=== PATIENT | female | born 1970 | race Caucasian/White ===

== ENCOUNTER 2022-06-10 06:51 | Inpatient (IN) | payer MEDICAID ==
[2022-06-03 16:37] LABS: CLARITY,URINE SLIGHTLY CLOUDY (Clear); COLOR,URINE YELLOW (Yellow); GLUCOSE, URINE NEGATIVE (Neg); KETONES,URINE 15 mg/dl (Neg); LEUKOCYTE ESTERASE ,URINE NEGATIVE (Neg); NITRITES, URINE NEGATIVE (Neg); OCCULT BLOOD,URINE SMALL (Neg); PH,URINE 5.5 (4.8-8.0); PROTEIN,URINE NEGATIVE (Neg); UROBILINOGEN,URINE 0.2 E.U/dL (0.2-1.0)
[2022-06-03 16:39] LABS: UA COLLECTION TYPE CLN CATCH MIDSTREAM
[2022-06-03 16:51] LABS: ALBUMIN/GLOBULIN RATIO 1.1 (1.1-1.5); ALKALINE PHOSPHATASE 45 IU/L (46-116); BLOOD UREA NITROGEN 10 MG/DL (7-18); CALCIUM 8.5 MG/DL (8.5-10.1); CHLORIDE 107 MMOL/L (99-107); CREATININE 0.77 MG/DL (0.40-0.90); PRE OP ALT 13 U/L (30-65); PRE OP ANION GAP 7 (8-16); PRE OP AST 22 U/L (10-37); PRE OP BILIRUB, TOTAL 0.4 MG/DL (0.0-1.0); PRE OP GLUCOSE 87 MG/DL (70-104); PRE OP SODIUM 141 MMOL/L (135-145); TOTAL CARBON DIOXIDE 27.4 MMOL/L (24-32); TOTAL PROTEIN 7.5 G/DL (6.4-8.2); eGFR 79 ML/MIN
[2022-06-03 16:53] LABS: BACTERIA,URINE 1+ /HPF (Neg); MUCUS STRANDS MANY /LPF (Neg); SQUAMOUS EPITHELIAL CELL,UR MANY /LPF (FEW); WBC,URINE 0-4 /HPF (0-4)
[2022-06-03 17:00] LABS: BASOPHILS # (AUTO) 0.1 X10'3 (0-0.2); BASOPHILS % (AUTO) 0.7 % (0-1); EOSINOPHILS # (AUTO) 0.1 X10'3 (0-0.9); EOSINOPHILS % (AUTO) 1.5 % (0-6); LYMPHOCYTES # (AUTO) 2.9 X10'3 (1.1-4.8); MEAN CORPUSCULAR HGB CONC 33.7 g/dL (33.0-36.5); MONOCYTES # (AUTO) 0.7 X10'3 (0-0.9); MONOCYTES % (AUTO) 9.3 % (2-12); NEUTROPHILS # (AUTO) 3.9 X10'3 (1.8-7.7); NEUTROPHILS % (AUTO) 50.5 % (42-75); PRE OP HEMATOCRIT 43.1 % (35.0-45.0); PRE OP HEMOGLOBIN 14.5 g/dL (12.0-16.0); PRE OP PLATELET COUNT 200 X10'3 (140-440); RED BLOOD COUNT 4.68 X10'6 (4.20-5.60); RED CELL DISTRIBUTION WIDTH 13.8 % (11.5-14.5)
[~2022-06-10] VITALS: Ht 165.1 cm; Wt 72.6 kg
[2022-06-10] VITALS (25 sets, daily range): BP systolic 83–122; BP diastolic 47–86
[~2022-06-10 06:51] MED LIST: DULO-31 PO; ESCI5TAB PO; ESTR2TAB50 PO; HYDROcodone/acetaminophen 10/325mg tab PO PRN; HYDROmorphone 1 mg/ml syringe IV PRN; MELO-102 PO; XAL0.005OS OP; acetaminophen 325mg tablet PO ONE; acetaminophen 325mg tablet PO PRN; bisacodyl 10mg suppository rectal RC PRN; ceFAZolin inj. 2,000 MG in dextrose 5%-water 100 ML IV ONE; celeCOXIB 100mg capsule PO ONE; diphenhydrAMINE 25mg capsule PO PRN; famotidine 20mg tablet PO ONE; gabapentin 300mg capsule PO ONE; magnesium hydroxide 30ml (MOM) UD suspension PO PRN; metoclopramide 5 mg/ml inj IV ONE; naloxone 0.4 mg/ml inj IV PRN; ondansetron/PF 4mg/2ml inj IV PRN; ringers solution, lacted 1,000 ML IV SCH; tranexamic acid inj. 1,000 MG in 0.7% saline 100 ML PMX IV ONE; vancomycin 1,500 MG in NS 300ml IV soln IV ONE
[2022-06-10] MEDS: gabapentin 300mg capsule PO SCH ×3 (08:00→20:44)
[2022-06-10] MEDS ORDERED: ringers solution, lacted 1,000 ML IV SCH (08:00)
[2022-06-10] MEDS ORDERED: ondansetron/PF 4mg/2ml inj IV PRN (08:00)
[2022-06-10] MEDS ORDERED: hydrALAZINE 20mg/ml inj. IV PRN (08:00)
[2022-06-10] MEDS ORDERED: morphine 4 MG/ML inj SYRINge IV PRN (08:00)
[2022-06-10] MEDS ORDERED: labetalol 20mg/4ml (5mg/ml) syringe IV PRN (08:00)
[2022-06-10] MEDS ORDERED: morphine 2 MG/ML inj. syringe IV PRN (08:00)
[2022-06-10] MEDS ORDERED: fentaNYL/PF 50MCG/1 ML 2ML syringe IV PRN ×2 (08:00)
--- NOTE | 2022-06-10 08:00 | NUR ---
CALLED [facility] SARMIENTO RE: PT HAVING NO ORDERS ON CHART YET FOR SURGERY. DR HATCH PHYSICAL THERAPY PROFESSOR STATES THEY WILL FAX OVER ORDERS CARLTIO. MD LEWIS AWARE WERE WAITING ON ORDERS.
[2022-06-10] MEDS ORDERED: ketorolac trometh. 30mg/ml inj. ONE (09:02)
[2022-06-10] MEDS ORDERED: epiNEPHrine 1 mg/ml inj ONE (09:02)
[2022-06-10] MEDS ORDERED: vancomycin 1,000mg inj ONE ×2 (09:03→09:37)
[2022-06-10] MEDS ORDERED: cloNIDine hcl/PF 100mcg/ml inj ONE (09:03)
[2022-06-10] MEDS ORDERED: BUPIVAcaine/PF 5 mg/ml 10ml ONE (09:05)
[2022-06-10] MEDS ORDERED: ceFAZolin 1000mg inj ONE (09:37)
[2022-06-10] MEDS ORDERED: fentaNYL/PF 50MCG/1 ML 2ML syringe ONE (09:49)
[2022-06-10] MEDS ORDERED: midazolam 1 mg/ML 2ml injection ONE (10:10)
--- NOTE | 2022-06-10 10:30 | NUR ---
PT HEADED BACK TO OPERATING ROOM. MD AWARE PT HAS NO ORDERS FOR SURGERY ON CHART YET. OR CHARGE ALSO AWARE AND UNDERSTANDS ORDERS WERE UNAVAILABLE IN PAS UNIT. THEREFORE PT DID NOT GET PRE OP MEDICATIONS PER DR HATCH ORDERS. PT WILL HOWEVER GET VANCO AND ANCEF ORDERED FOR PRE OP.
--- NOTE | 2022-06-10 11:03 | NUR ---
Received from OR via ORTHO BED , accompanied by Anesthesiologist ISIDRO and report given by Anesthesiolgist.PATIENT WITH 20G PIV IN LEFT UE RUNNIGN LR AT 100. DENIES PAIN SENSATION LEVEL IS AT L1 CA THIS TIME. PATIENT WITH RICKY VAC TO RIGHT THIGH AREA. KNEE IMMOBILIZER PRESENT. PATIENT WITH + DP TO RIGHT FOOT. Addendum: 06/10/22 at 1202 by Panchito Tejeda RN, RN Amended: Links added.
[2022-06-10] MEDS: duloxetine 30mg CAPSULE.DR PO SCH (12:00)
[2022-06-10] MEDS: ESCITALOPRAM OXALATE 5 MG TABLET PO SCH ×2 (12:00→20:45)
[2022-06-10] MEDS ORDERED: tranexamic acid inj. 730 MG in normal saline 100ml IV soln 92.7 ML IV ONE ×2 (12:00→14:00)
--- NOTE | 2022-06-10 12:23 | NUR ---
CARE OF PATIENT AND REPORT HAS BEEN CALLED. ALL QUESTIONS ANSWERED TO ACCEPTING RN. PATIENT HAS MET ALL CRITERIA FOR TRANSFER TO [facility] ICU ORTHO FLOOR. VSS. DRESSINGS INTACT. BED LOW, CALL LIGHT PRESENT AND 2 RAILS UP. RN PRESENT TO ACCEPT. RN AWARE PATIENT HAS ARRIVED. Addendum: 06/10/22 at 1257 by Panchito Turcios - DARBY RN Amended: Links added.
--- NOTE | 2022-06-10 17:30 | NUR ---
I have reviewed and agree with all interventions, assessments performed, and documention by DARBY Yancey.
--- NOTE | 2022-06-10 18:12 | NUR ---
Problems reprioritized. Patient report given, questions answered & plan of care reviewed with DARBY Barnett.
--- NOTE | 2022-06-10 18:36 | NUR ---
Patient in room ORTHO 4010. I have received report from Naye DENNIS and had the opportunity to ask questions and assume patient care.
[2022-06-10] MEDS: potassium cl 20mEq in 1/2 NS 1,000 ML IV SCH ×2 (18:51→20:44)
[2022-06-10] MEDS: ceFAZolin/D5W- 1GM premix 50 ML IV SCH (19:01)
[2022-06-10] MEDS ORDERED: vancomycin/NS 1 GM ADD-VANTAGE 250 ML IV SCH (20:00)
[2022-06-10] MEDS ORDERED: latanoprost 0.005% 2.5ml ophthalmic drops EACHEYE SCH (21:00)
[2022-06-10] MEDS ORDERED: sennosides 8.6mg tablet PO SCH (21:00)
[2022-06-10] MEDS: HYDROmorphone inj. 0.5 MG/0.5 ML DISP.SYRIN IV PRN (23:04)
[2022-06-11] MEDS: ceFAZolin/D5W- 1GM premix 50 ML IV SCH (00:35)
[2022-06-11 02:00] VITALS: BP 85/54
[2022-06-11] MEDS: potassium cl 20mEq in 1/2 NS 1,000 ML IV SCH (04:00)
[2022-06-11] MEDS: HYDROmorphone inj. 0.5 MG/0.5 ML DISP.SYRIN IV PRN (05:39)
[2022-06-11 06:00] VITALS: BP 92/49
--- NOTE | 2022-06-11 06:20 | NUR ---
Patient in room ORTHO 4010. I have received report from Ericka and had the opportunity to ask questions and assume patient care.
[2022-06-11] MEDS ORDERED: oxyCODONE/APAP 10/325mg tablet PO PRN ×2 (06:25)
[2022-06-11 06:35] LABS: BASOPHILS % (AUTO) 0.3 % (0-1); EOSINOPHILS # (AUTO) 0.1 X10'3 (0-0.9); EOSINOPHILS % (AUTO) 0.7 % (0-6); HEMATOCRIT 32.9 % (35.0-45.0); HEMOGLOBIN 11.1 g/dl (12.0-16.0); LYMPHOCYTES # (AUTO) 1.6 X10'3 (1.1-4.8); LYMPHOCYTES % (AUTO) 20.1 % (21-51); MEAN CORPUSCULAR HEMOGLOBIN 31.3 PG (27.0-31.0); MEAN CORPUSCULAR HGB CONC 33.9 g/dL (33.0-36.5); MEAN CORPUSCULAR VOLUME 92.3 FL (78-98); MEAN PLATELET VOLUME 7.9 FL (7.4-10.4); MONOCYTES # (AUTO) 1.1 X10'3 (0-0.9); MONOCYTES % (AUTO) 13.9 % (2-12); NEUTROPHILS # (AUTO) 5.2 X10'3 (1.8-7.7); PLATELET COUNT 151 X10'3 (140-440); RED BLOOD COUNT 3.56 X10'6 (4.20-5.60); RED CELL DISTRIBUTION WIDTH 13.6 % (11.5-14.5)
--- NOTE | 2022-06-11 06:37 | NUR ---
Problems reprioritized. Patient report given, questions answered & plan of care reviewed with shea PASTOR.
[2022-06-11 06:52] LABS: ANION GAP 9 (8-16); CHLORIDE 109 MMOL/L (99-107); POTASSIUM 4.1 MMOL/L (3.5-5.1); SODIUM 141 MMOL/L (135-145); TOTAL CARBON DIOXIDE 23.5 MMOL/L (24-32)
[2022-06-11] MEDS ORDERED: ascorbic acid 500mg tablet PO SCH (08:00)
[2022-06-11] MEDS ORDERED: multivitamins, therapeutics tablet PO SCH (08:00)
[2022-06-11] MEDS ORDERED: aspirin 325mg tablet PO SCH (08:30)
[2022-06-11] MEDS: gabapentin 300mg capsule PO SCH (08:46)
[2022-06-11] MEDS: ESCITALOPRAM OXALATE 5 MG TABLET PO SCH (08:46)
[2022-06-11] MEDS: duloxetine 30mg CAPSULE.DR PO SCH (08:46)
--- NOTE | 2022-06-11 10:23 | NUR ---
Joint surgery consult: Pt s/p R hip surgery this admit per EMR. Pt seen by JOHN for written/verbal high protein diet ed w/ RD contact information provided. JOHN encouraged pt to contact dietitian's office if further questions/concerns. Addendum: 06/11/22 at [address] Amended: Links added.
--- NOTE | 2022-06-11 11:10 | NUR ---
Reviewed discharge instructions with patient. Pt verbalized understanding. Pt is alert, oriented and ready to go home. Pt dressed herself, gathered all of her belongings and was wheeled down stairs to be driven home by her son.
[2022-06-11] MEDS ORDERED: celeCOXIB 100mg capsule PO SCH (20:00)
[2022-06-12] MEDS ORDERED: estradiol 1mg tablet PO SCH (08:00)
== END 2022-06-11 11:10 | disposition home or self-care (01) | DRG 324 ==
LOC: PAS 06:51 → ORTHO 4S 12:52
PROVIDERS: ADMIT Orthopaedic Surgery; ATTEND Orthopaedic Surgery
PROC: 0SR906Z Replacement of Right Hip Joint with Oxidized Zirconium on Polyethylene Synthetic Substitute, Open Approach (ICD-10-PCS; principal; 2022-06-10 09:43)
DX: M16.11 Unilateral primary osteoarthritis, right hip (principal); Z79.82 Long term (current) use of aspirin; Z79.899 Other long term (current) drug therapy
CPT/HCPCS: 36415; 72170; 80051; 80053; 81001; 82948; 85025; 86885; 86900; 86901; 87081; 87811; 97110; 97116; 97161; 97530; A4615; A7000; C1776; G0378; J0171; J0690; J0735; J1170; J1885; J2250; J2270; J2405; J3010; J3370; J3480; J3490; J7040; J7120